=== PATIENT | female | born 2005 | race Caucasian/White ===

== ENCOUNTER 2025-02-20 14:13 | Emergency (ER) | payer OTHER, SELFPAY ==
--- OUTSIDE RECORDS SUMMARY | 2025-02-18 11:45 | XMS_ITS | Encounter Summary ---
Author Organization [facility] Address [address] [facility] [place] [address] Care Team Providers Care Gasoline Truck Crane Operator Name Role Phone Henrietta Rogers OPERATING ROOM COORDINATOR Unavailable Unallocated, Noms Provider Primary Care Provi joya Encounter Details DateTypeDepartmentCare Team (Latest Contact Info)Siqhvgkfkcs94/17/2025 11:45 AM ESTOffice Visit [facility] [address] [facility] [address] [place] [id number] Emilee Nassar NP [address] [facility] [address] [place] [address] Pharyngitis, unspecified etiology (Primary Dx); Bronchitis with asthma, acute (HCC); Acute upper respiratory infection Social History Tobacco UseTypesPacks/DayYears UsedDateSmoking Tobacco: Never Tobacco Cessation:Counseling Given: Not Answered Alcohol UseStandard Drinks/WeekCommentsNever0 (1 standard drink = 0.6 oz pure alcohol)caffeine intake: 1-2 cups per day.PHQ-2AnswerDate RecordedPatient Health Questionnaire-2 [id number] and Gender Information ValueDate RecordedSex Assigned at BirthNot on fileLegal IzsDaxxwj44/15/2023 6:56 PM EDTGender IdentityNot on fileSexual OrientationNot on filedocumented as of this encounter Last Filed Vital Signs Vital SignReadingTime TakenCommentsBlood Mtqetocc460/6802/18/2025 11:44 AM EST Ddftm827202/18/2025 11:44 AM QOYCttctquvtwy56.7 ??C (98.1 ??F)02/18/2025 11:44 AM ESTRespiratory Rate--Oxygen Yebzlptdlg01%02/18/2025 11:44 AM ESTInhaled Oxygen Concentration--Fzqsmq95 kg (127 lb 13.9 oz)02/18/2025 11:44 AM ESTHeight--Body Mass Index20.64008/24/2022 1:43 PM EDTdocumented in this encounter Plan of Treatment Not on file documented as of this encounter Procedures Procedure NamePriorityDate/TimeAssociated DiagnosisCommentsINFLUENZA DNA PROBE Zshgmqc3202/18/2025 12:29 PM EST Pharyngitis, unspecified etiology STREP DNA YEYWRBnycdzn53/17/2025 12:16 PM EST Pharyngitis, unspecified etiology RAPID DNA BSGDRSaijmig05/17/2025 12:16 PM EST Pharyngitis, unspecified etiology documented in this encounter Results * INFLUENZA DNA PROBE (02/18/2025 12:29 PM EST)ComponentValueRef RangeTest MethodAnalysis TimePerformed AtPathologist SignatureINFLUENZA ANegative NegativeINFLUENZA BNegativeNegativeSpecimen (Source)Anatomical Location / LateralityCollection Method / VolumeCollection TimeReceived TimeNasal 02/18/2025 12:29 PM EST Narrative Authorizing ProviderResult TypeResult StatusAnthbhargav Wasserman DOPOINT OF CARE TEST ENTER/EDIT ORDERABLESFinal Result * STREP DNA PROBE (02/18/2025 12:16 PM EST)ComponentValueRef RangeTest Method Analysis TimePerformed AtPathologist SignatureRESULTNegativeNegativeSpecimen (Source)Anatomical Location / LateralityCollection Method / VolumeCollection TimeReceived TfiuOnjkdo17/17/2025 12:16 PM EST Narrative Authorizing ProviderResult TypeResult StatusAnthony G Lisy DOPOINT OF CARE TEST ENTER/EDIT ORDERABLESFinal Result * RAPID DNA COVID (02/18/2025 12:16 PM EST)ComponentValueRef RangeTest Method Analysis TimePerformed AtPathologist SignatureCOVID-19 NAATNegativeNegative Specimen (Source)Anatomical Location / LateralityCollection Method / Volume Collection TimeReceived KbhuTsrga29/17/2025 12:16 PM EST Narrative Authorizing ProviderResult TypeResult StatusJames Cristian Chapaemerald DOPOINT OF CARE TEST ENTER/EDIT ORDERABLESFinal Result documented in this encounter Visit Diagnoses Diagnosis Pharyngitis, unspecified etiology- Primary Bronchitis with asthma, acute (HCC) Acute upper respiratory infection Acute upper respiratory infections of unspecified site documented in this encounter Care Teams Team MemberRelationshipSpecialtyStart DateEnd Date Henrietta Rogers, OPERATING ROOM COORDINATOR [address] [place] [address] PCP - [facility]06/03/22 Unallocated, Noms Provider, [address] [place] [address] PCP - Svidoho00/4/23documented as of this encounter
[2025-02-20 14:20] VITALS: BP 123/87; PULSE 76; TEMP 36.4; O2SAT 100
--- NOTE | 2025-02-20 16:09 | ED.GENADUL1 ---
HPI HPI - General Adult General Chief complaint: Extremity Problem, Nontraumatic Stated complaint: left side going numb Time Seen by Provider: 02/20/25 15:39 Source: patient Mode of arrival: walk-in History of Present Illness HPI narrative: Patient was diagnosed by her primary care doctor for upper respiratory tract infection and was prescribed a cough medication in addition to prednisone, the patient herself denies any significant symptoms at the moment but she mentioned that she had this chest tightness in the left side of the chest and she started feeling numb in her left shoulder and she have a history of anxiety 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 and she was told that this numbness could be secondary to her heart and that why she is here Patient does not have any numbness right now any pain , she did not have any pain to begin with she only had tightness in the left upper chest Related Data Home Medications ?Medication ?Instructions ?Recorded ?Confirmed prednisone 1 pill PO DAILY 02/20/25 02/20/25 Allergies Allergy/AdvReac Type Severity Reaction Status Date / Time No Known Drug Allergies Allergy Verified 02/20/25 14:19 Opioid HPI Opioid Management Most Recent Opioid Data: Last Pain Scale 6 Today, 14:20 Review of Systems ROS Status of ROS 10 or more systems reviewed and unremarkable except as noted in history and below PFSH PFSH Social History Little interest or pleasure in doing things: not at all Feeling down, depressed, or hopeless: not at all Exam Narrative Exam Narrative: Nurses notes and vital signs reviewed and patient is not hypoxic. General: Well-appearing and in no apparent distress. Skin: Warm, dry, no pallor noted. No rash. Head: Normocephalic, atraumatic. Neck: Supple, non-tender. Cardiovascular: Regular Rate and Rhythm without murmur, gallop or rub. Respiratory: No accessory muscle use or respiratory distress. Lungs are clear to auscultation, no wheezing, rales or rhonchi Chest Wall: no tenderness Back: No midline thoracic or lumbar vertebral tenderness. No CVA tenderness Musculoskeletal: normal ROM, no calf or popliteal tenderness, no lower extremity edema/swelling GI: Abdomen is soft, non-distended. Normal bowel sounds. No masses appreciated. No tenderness to palpation. No rebound, guarding, or rigidity noted. Neurological: A&O x4. No cranial nerve dysfunction observed. No truncal ataxia. Moves all extremities. Sensation intact. Psychiatric: Cooperative and interactive. Normal mood and affect. Constitutional Vital Signs, click to edit/add: Last Vital Signs Temp 97.5 F L 02/20/25 14:20 Pulse 76 02/20/25 14:20 Resp 16 02/20/25 14:20 BP 123/87 02/20/25 14:20 Pulse Ox 100 02/20/25 14:20 O2 Del Method Room Air 02/20/25 14:20 Course Vital Signs Vital signs: Vital Signs Temperature 97.5 F L 02/20/25 14:20 Pulse Rate 76 02/20/25 14:20 Respiratory Rate 16 02/20/25 14:20 Blood Pressure 123/87 02/20/25 14:20 Pulse Oximetry 100 02/20/25 14:20 Oxygen Delivery Method Room Air 02/20/25 14:20 Temperature 97.5 F L 02/20/25 14:20 Pulse Rate 76 02/20/25 14:20 Respiratory Rate 16 02/20/25 14:20 Blood Pressure 123/87 02/20/25 14:20 Pulse Oximetry 100 02/20/25 14:20 Oxygen Delivery Method Room Air 02/20/25 14:20 Medical Decision Making MDM Narrative Medical decision making narrative: The patient airway is clear bilaterally I could hear the lung both sides The patient symptoms could be secondary to pleuritic pain She is a 20 years old with no risk factor for coronary artery disease and her presentation is not concerning for that she mostly has some atypical pain with anxiety And right now the patient was comforted that this is mostly atypical pain She is continue supportive care The patient to follow-up with the primary care within 2 to 3 days and to come back to the ER in case of any worsening of the current symptoms or any new symptoms or concerns To come back to the ER in case of any symptoms or concerns and she was advised to stop the prednisone because she did not need it at the moment Discharge Plan Discharge Chief Complaint: Extremity Problem, Nontraumatic Clinical Impression: Atypical chest pain, Pleurisy Patient Disposition: Home, Self-Care Time of Disposition Decision: 16:09 Condition: Good Prescriptions / Home Meds: No Action prednisone 1 pill PO DAILY Print Language: Anguillan Instructions: Chest Wall Pain (ED) Referrals: Physician,Non-Staff, MD [Primary Care Provider] - 1 week
--- OUTSIDE RECORDS SUMMARY | 2025-02-20 16:11 | XMS_ITS | Clinical Summary ---
Author Organization [facility] Address [address] [place] [address] Care Team Providers Care Hospital Chief Executive Officer Name Role Phone Henrietta Rogers Judith INFECTIOUS WASTE TECHNICIAN Unavailable Unallocated, Noms Provider Primary Care Provi joya Allergies Active AllergyReactionsCriticalityNoted ClgeXqikaravKyzqfjdiPraczrc59/19/2023ee FjtfkWcrbunv17/19/2023 Medications MedicationSigDispense QuantityRefillsLast FilledStart DateEnd DateStatus Multiple Vitamin (multivitamin) tablet Take 1 tablet by mouth DailyActive Cranberry 250 MG capsule Take by mouthActive fluconazole (Diflucan) 150 MG tablet Indications:Vaginal candidiasisTake 1 tablet (150 mg) by mouth Daily Take 1 tab at on set of symptoms; may repeat x 1 in 72 hours if not improving 2 tablet 5Active pwsaubbgxfjemkq-wwcwzrttonxmyii-CK 30-2-10 MG/5ML syrup Indications:Acute upper respiratory infectionTake 5-10 mL by mouth 4 (four) times a day as needed for congestion or cough for up to 7 days 118 mL /5Active azithromycin (Zithromax) 250 MG tablet Indications:Bronchitis with asthma, acute (HCC)Take 2 tabs (500 mg) by mouth today, than 1 tab (250 mg) daily for 4 days. 6 tablet 5Active predniSONE (Deltasone) 10 MG tablet Indications:Bronchitis with asthma, acute (HCC)Take 3 tablets (30 mg) by mouth in the morning for 5 days. Take with meals. 15 tablet 5125Active Active Problems ProblemNoted DateDiagnosed DateAllergic picntwqb47/19/6097Touusod61/19/2023oor hcuzometptcwn31/19/2023Tympanosclerosis of both ears08/21/2022 Encounters DateTypeDepartmentCare OidzLfiygbfmapq42/17/2025 11:45 AM ESTOffice Visit [facility] [address] [place] [phone] Emilee Nassar, CHACORTA Pharyngitis, unspecified etiology (Primary Dx); Bronchitis with asthma, acute (HCC); Acute upper respiratory wyxesmpnb67/17/4653Opnikm03/10/2025Results [facility] [address] [place] [phone] Natividad Alejandro, CHACORTA URINALYSIS ANALYZER TEST, URINARY TRACT INFECTION (HTRX)12/11/2024 10:45 AM EDT [facility] [address] [place] [address] Natividad Alejandro, INFECTIOUS WASTE TECHNICIAN Acute cystitis with hematuria (Primary Dx); Urinary frequency; Vaginal skvhhayjtoe95/09/2025Travelfrom Last 3 Months Immunizations ImmunizationAdministration DatesNext DueDTaP / IPV07/28/2009DTaP, Unspecified 04/26/2005,2004,2004,2004HPV 9-Cbaxip3704/20/2016,10/14/2015Hep A, ped/adol, 2 dose12/19/2011,07/28/2009Hep B, Adolescent or Wflspuidj2004 HiB, raisgwidffx40/22/2006,2004Hib / Hep B008/10/2004,2004IPV 2004,2004,2004Influenza, injectable, quadrivalent, preservative free03/27/2019Influenza, injectable, quadrivalent, preservative free, kshohtlmw73/16/4598PHM6007/28/2009,02/08/2005Meningococcal B, Omv10/21/2021 Meningococcal USH7Y2110/21/2021,10/14/2015Pneumococcal Conjugate PCV 13007/28/2009, 07/28/2005Pneumococcal Conjugate PCV 7104/11/2004,2004,2004, 2004Tdap10/14/20153697Topxuoxov41/26/2010,02/08/2005 Family History Medical HistoryRelationNameCommentsCancerFatherHearing lossFatherHyperthyroidism MotherRelationNameStatusCommentsFatherAliveMotherAlive Social History Tobacco UseTypesPacks/DayYears UsedDateSmoking Tobacco: Never Tobacco Cessation:Counseling Given: Not Answered Alcohol UseStandard Drinks/WeekCommentsNever0 (1 standard drink = 0.6 oz pure alcohol)caffeine intake: 1-2 cups per day.PHQ-2AnswerDate RecordedPatient Health Questionnaire-2 Bzcyl6933CommentsNoSex and Gender Information ValueDate RecordedSex Assigned at BirthNot on fileLegal HxyIcysii09/15/2023 6:56 PM EDTGender IdentityNot on fileSexual OrientationNot on file Last Filed Vital Signs Vital SignReadingTime TakenCommentsBlood Tdjahrkv004/6802/18/2025 11:44 AM EST Ymyvd767902/18/2025 11:44 AM DRFPmoifdlvluq85.7 ??C (98.1 ??F)02/18/2025 11:44 AM ESTRespiratory Rate--Oxygen Dftytvilcw35%02/18/2025 11:44 AM ESTInhaled Oxygen Concentration--Jwwzwo10 kg (127 lb 13.9 oz)02/18/2025 11:44 AM CKKTsnxcs588.6 cm (5' 6 )08/24/2022 1:43 PM EDTBody Mass Index20.64008/24/2022 1:43 PM EDT Plan of Treatment Health MaintenanceDue DateLast DoneCommentsPneumococcal Vaccine: Pediatrics (0 to 5 Years) and At-Risk Patients (6 to 64 Years) (1 of 1 - PPSV23, PCV20, or PCV21), 07/28/2005, 02/08/2005, Additional history exists COVID-19 Vaccine ( season)2024Influenza Vaccine (#1)2024 03/27/2019, 04/20/2016 Procedures Procedure NamePriorityDate/TimeAssociated DiagnosisCommentsINFLUENZA DNA PROBE Ekkvnxp9202/18/2025 12:29 PM EST Pharyngitis, unspecified etiology STREP DNA BXRSGJugbzzo22/17/2025 12:16 PM EST Pharyngitis, unspecified etiology RAPID DNA QIEGWCvinyhy65/17/2025 12:16 PM EST Pharyngitis, unspecified etiology URINARY TRACT INFECTION (HTRX)Lkzqhal4012/11/2024 11:16 AM EDT Urinary frequency Acute cystitis with hematuria URINALYSIS ANALYZER YVVSIkwqdqx07/09/2025 10:55 AM EDT Urinary frequency from Last 3 Months Results * INFLUENZA DNA PROBE (02/18/2025 12:29 PM EST)ComponentValueRef RangeTest MethodAnalysis TimePerformed AtPathologist SignatureINFLUENZA ANegative NegativeINFLUENZA BNegativeNegativeSpecimen (Source)Anatomical Location / LateralityCollection Method / VolumeCollection TimeReceived TimeNasal 02/18/2025 12:29 PM EST Narrative Authorizing ProviderResult TypeResult StatusAnthony Cristian Wasserman DOPOINT OF CARE TEST ENTER/EDIT ORDERABLESFinal Result * STREP DNA PROBE (02/18/2025 12:16 PM EST)ComponentValueRef RangeTest Method Analysis TimePerformed AtPathologist SignatureRESULTNegativeNegativeSpecimen (Source)Anatomical Location / LateralityCollection Method / VolumeCollection TimeReceived DnuzDbskxy98/17/2025 12:16 PM EST Narrative Authorizing ProviderResult TypeResult StatusAnthony G Tesmond DOPOINT OF CARE TEST ENTER/EDIT ORDERABLESFinal Result * RAPID DNA COVID (02/18/2025 12:16 PM EST)ComponentValueRef RangeTest Method Analysis TimePerformed AtPathologist SignatureCOVID-19 NAATNegativeNegative Specimen (Source)Anatomical Location / LateralityCollection Method / Volume Collection TimeReceived CostCgqwf74/17/2025 12:16 PM EST Narrative Authorizing ProviderResult TypeResult StatusAnthbhargav Wasserman DOPOINT OF CARE TEST ENTER/EDIT ORDERABLESFinal Result * (ABNORMAL) URINARY TRACT INFECTION (HTRX) (12/11/2024 11:16 AM EDT)Component ValueRef RangeTest MethodAnalysis TimePerformed AtPathologist Signature ACINETOBACTER JDOLJFJB559.961 - 24.689 ppm12/12/2024 8:31 AM EDTHealthTrackRx at LabPortACINETOBACTER BAUMANIINot Hyjyqdju07.961 - 24.689 ppm12/12/2024 8:31 AM EDTHealthTrackRx at LabPortCITROBACTER FNZCAPUS969.000 - 32.015 ppm 12/12/2024 8:31 AM EDTHealthTrackRx at LabPortCITROBACTER FREUNDIINot Detected 23.000 - 32.015 ppm12/12/2024 8:31 AM EDTHealthTrackRx at LabPortENTEROBACTER AEROGENES, MBEDHJG430.000 - 32.290 ppm12/12/2024 8:31 AM EDTHealthTrackRx at LabPortENTEROBACTER AEROGENES, CLOACAENot Mmijakbk76.000 - 32.290 ppm 12/12/2024 8:31 AM EDTHealthTrackRx at LabPortENTEROCOCCUS FAECALIS, FAECIUM0 26.000 - 33.043 ppm12/12/2024 8:31 AM EDTHealthTrackRx at LabPortENTEROCOCCUS FAECALIS, FAECIUMNot Vufnvhik51.000 - 33.043 ppm12/12/2024 8:31 AM EDT [facility] at LabPortESCHERICHIA COLI20.942(A)23.000 - 28.500 ppm12/12/2024 8:31 AM EDTHealthTrackRx at LabPortESCHERICHIA COLIDetected(A)23.000 - 28.500 ppm12/12/2024 8:31 AM EDTHealthTrackRx at LabPortKLEBSIELLA PNEUMONIAE, LZRIUFQ392.000 - 31.865 ppm12/12/2024 8:[address] [facility] KLEBSIELLA PNEUMONIAE, OXYTOCANot Xzxuunnx38.000 - 31.865 ppm12/12/2024 8:[address] [facility] HospitalMORGANELLA WRQQNUMP893.961 - 24.689 ppm 12/12/2024 8:[address] [facility] HospitalMORGANELLA MORGANIINot Detected 19.961 - 24.689 ppm12/12/2024 8:31 AM EDTHealthTrackRx at LabPortPROTEUS MIRABILIS, PFVVPITL696.000 - 28.500 ppm12/12/2024 8:[address] [facility] HospitalPROTEUS MIRABILIS, VULGARISNot Jhnxmyeo19.000 - 28.500 ppm12/12/2024 8:[address] Anne HospitalPSEUDOMONAS MWFQCKNIXW127.000 - 31.801 ppm 12/12/2024 8:[address] [facility] HospitalPSEUDOMONAS AERUGINOSANot Kzvmufwn08.000 - 31.801 ppm12/12/2024 8:[address] [address] [facility] STAPHYLOCOCCUS IRTRWQ900.000 - 31.595 ppm12/12/2024 8:[address] Anne HospitalSTAPHYLOCOCCUS AUREUSNot Noipqynk05.000 - 31.595 ppm12/12/2024 8:[address] Anne HospitalSTREPTOCOCCUS AGALACTIAE (GROUP B STREP)26.803 (A)26.000 - 32.435 ppm12/12/2024 8:[address] [facility] STREPTOCOCCUS AGALACTIAE (GROUP B STREP)Detected(A)26.000 - 32.435 ppm 12/12/2024 8:[address] Anne HospitalCANDIDA ALBICANS, PARAPSILOSIS, BXRKJVRIRN827.000 - 30.347 ppm12/12/2024 8:[address] [address] [facility] JING ALBICANS, PARAPSILOSIS, TROPICALISNot Hysmvmcy39.000 - 30.347 ppm 12/12/2024 8:31 AM EDTHealthTrackRx at LabPortCANDIDA JCWUORCJ404.000 - 31.618 ppm12/12/2024 8:31 AM EDTHealthTrackRx at LabPortCANDIDA GLABRATANot Detected 23.000 - 31.618 ppm12/12/2024 8:31 AM EDTHealthTrackRx at LabPortCANDIDA YAEJZA270.000 - 30.873 ppm12/12/2024 8:31 AM EDTHealthTrackRx at LabPort JING KRUSEINot Ikjdzcic44.000 - 30.873 ppm12/12/2024 8:31 AM EDT [facility] at LabPortSERRATIA ABJNKLDJAA950.000 - 31.581 ppm12/12/2024 8:31 AM EDTHealthTrackRx at LabPortSERRATIA MARCESCENSNot Tkkwevmu26.000 - 31.581 ppm12/12/2024 8:31 AM EDTHealthTrackRx at LabPortSTREPTOCOCCUS PYOGENES (GROUP A STREP)019.961 - 24.689 ppm12/12/2024 8:31 AM EDTHealthTrackRx at LabPort STREPTOCOCCUS PYOGENES (GROUP A STREP)Not Mascerem75.961 - 24.689 ppm 12/12/2024 8:31 AM EDTHealthTrackRx at LabPortSTAPHYLOCOCCUS EPIDERMIDIS, HAEMOLYTICUS, LUGDUNENSIS, SAPROPHYTICUS (VKMNV568.961 - 24.689 ppm12/12/2024 8:31 AM EDTHealthTrackRx at LabPortSTAPHYLOCOCCUS EPIDERMIDIS, HAEMOLYTICUS, LUGDUNENSIS, SAPROPHYTICUS (URINANot Lbzcnilk62.961 - 24.689 ppm12/12/2024 8:31 AM EDTHealthTrackRx at LabPortSTAPHYLOCOCCUS EPIDERMIDIS, HAEMOLYTICUS, LUGDUNENSIS, SAPROPHYTICUS (JUVIU106.961 - 24.689 ppm12/12/2024 8:31 AM EDT [facility] at LabPortSTAPHYLOCOCCUS EPIDERMIDIS, HAEMOLYTICUS, LUGDUNENSIS, SAPROPHYTICUS (URINANot Qjctakdm71.961 - 24.689 ppm10/12/2024 8:31 AM EDT [facility] Anne HospitalSpecimen (Source)Anatomical Location / Laterality Collection Method / VolumeCollection TimeReceived DkkpLjjgb84/09/2025 11:16 AM EDT1 1:37 AM EDT Narrative Authorizing ProviderResult TypeResult StatusNatividad Alejandro NPLAB BLOOD ORDERABLESFinal ResultPerforming OrganizationAddressCity/State/ZIP CodePhone Number [facility] [address] [address] * (ABNORMAL) URINALYSIS ANALYZER TEST (12/11/2024 10:55 AM EDT)ComponentValueRef RangeTest MethodAnalysis TimePerformed AtPathologist SignatureLEUKOCYTES3+ NegativeNITRITES+NegativeUROBILINOGEN0.2mg/dL0.2 - 1.0PROTEINNegativeNegative PH6.05.0 - 6.9KOHDQ1+NegativeSPECIFIC GRAVITY1.0251.001 - 1.035KETONESNegative NegativeBILIRUBINNegativeNegativeGLUCOSENegativeNegativeSpecimen (Source) Anatomical Location / LateralityCollection Method / VolumeCollection Time Received QacjUkmvi18/09/2025 10:55 AM EDT Narrative Authorizing ProviderResult TypeResult Madison Alejandro NPPOINT OF CARE TEST ENTER/EDIT ORDERABLESFinal Result from Last 3 Months Insurance Care Teams Team MemberRelationshipSpecialtyStart DateEnd Date Henrietta Rogers, INFECTIOUS WASTE TECHNICIAN [address] [facility] [address] [place] [address] PCP - [facility]06/03/22 Unallocated, Noms MD [place] [address] [place] [address] PCP - Poksdxs68/4/23
--- OUTSIDE RECORDS SUMMARY | 2025-02-20 16:11 | XMS_ITS | Encounter Summary ---
Author Organization [facility] Address [address] [facility] [place] [address] Care Team Providers Care Band Top Maker Name Role Phone Henrietta Rogers SHUTTLE TRUCK DRIVER Unavailable Unallocated, Noms Provider Primary Care Provi joya Encounter Details DateTypeDepartmentCare Team (Latest Contact Info)Lfdlceortkt11/17/2025Travel Social History Tobacco UseTypesPacks/DayYears UsedDateSmoking Tobacco: NeverAlcohol UseStandard Drinks/WeekCommentsNever0 (1 standard drink = 0.6 oz pure alcohol)caffeine intake: 1-2 cups per day.PHQ-2AnswerDate RecordedPatient Health Questionnaire-2 Sizgv2493CommentsNoSex and Gender InformationValueDate Recorded Sex Assigned at BirthNot on fileLegal RmrWtvwsr46/15/2023 6:56 PM EDTGender IdentityNot on fileSexual OrientationNot on filedocumented as of this encounter Plan of Treatment Not on file documented as of this encounter Visit Diagnoses Not on filedocumented in this encounter Care Teams Team MemberRelationshipSpecialtyStart DateEnd Date Henrietta Rogers SHUTTLE TRUCK DRIVER [address] [facility] [address] [place] [address] PCP - [facility]06/03/22 Unallocated, Noms Provider, [address] [place] [address] PCP - Txiavqy22/4/23documented as of this encounter
== END 2025-02-20 16:20 | disposition home or self-care (01) ==
PROVIDERS: Emergency Provider Emergency Medicine; Family Provider Family Medicine
DX: R07.89 Other chest pain (principal); R09.1 Pleurisy; F41.9 Anxiety disorder, unspecified
CPT/HCPCS: 99282